=== PATIENT | female | born 1975 | race American Indian/Alaskan Native ===

== ENCOUNTER 2018-12-30 12:13 | Emergency (ER) | payer OTHER ==
--- NOTE | 2018-12-30 12:40 | Emergency Department Report ---
Blank Doc - Documentation Documentation: This is a 43-year-old female that presents with chest pain with body aches. D enies any SOB. Denies any radiation. This initial assessment diagnostic orders/clinical plan/treatment(s) is/are subject to change based on patient's health status, clinical progression and re-assessment by fellow clinical providers in the ED. Further treatment and workup at subsequent clinical providers discretion. Patient/guardians urged not to elope from ED s their condition may be serious if not clinically assessed and managed. Initial orders include: 1-patient sent to [facility] for further evaluation and treatment. 2- CXR 3- labs
[2018-12-30 13:39] LABS: Basophils % (Auto) 0.5 % (0.0-1.8); Eosinophils % (Auto) 0.4 % (0.0-4.3); Hematocrit 36.1 % (30.3-42.9); Hemoglobin 12.1 gm/dl (10.1-14.3); Lymphocytes # (Auto) 1.3 K/mm3 (1.2-5.4); Lymphocytes % (Auto) 26.5 % (13.4-35.0); Mean Corpuscular HGB Conc 33 % (30-34); Mean Corpuscular Volume 92 fl (79-97); Monocytes # (Auto) 0.3 K/mm3 (0.0-0.8); Monocytes % (Auto) 5.5 % (0.0-7.3); Platelet Count 245 K/mm3 (140-440); Red Blood Count 3.92 M/mm3 (3.65-5.03); Red Cell Distribution Width 14.6 % (13.2-15.2)
[2018-12-30 13:53] LABS: INR 1.01 (0.87-1.13); Partial Thromboplastin Time 25.3 Sec. (24.2-36.6)
[2018-12-30 13:56] LABS: Alanine Aminotransferase 15 units/L (7-56); Albumin 4.1 g/dL (3.9-5); BUN/Creatinine Ratio 10; Blood Urea Nitrogen 8 mg/dL (7-17); Calcium 8.6 mg/dL (8.4-10.2); Hemolysis Index 3
--- NOTE | 2018-12-30 15:01 | Emergency Department Report ---
ED Chest Pain HPI - General Chief Complaint: Chest Pain Stated Complaint: SHAKING/CHEST PAIN Time Seen by Provider: 12/30/18 12:39 Source: patient Mode of arrival: Ambulatory Limitations: No Limitations - History of Present Illness Initial Comments: 41-year-old female presents to ED with complaint of palpitations. Patient states she has not slept in 24 hours because she is not sleepy. States since this morning she has been experiencing intermittent episodes of "heart fluttering." Patient states the last episode was accompanied by a big "boom" of pain, that lasted for only 1 second and then went away. Patient states this is associated with diffuse body shaking. Patient denies fever, shortness of breath, nausea, vomiting, diaphoresis, leg pain or swelling. reports patient has been drinking energy drinks and taking [employer] supplements. Unsure if this may be congenital into patient's symptoms. The patient denies chest pain or palpitations at this time. PCP: Dr Reno HAM Complaint: chest pain, other (palpitations) -: This morning Onset: during rest Pain Location: substernal Pain Radiation: none Severity: moderate Severity scale (0 -10): 6 Consistency: now resolved Improves With: nothing Worsens With: nothing re: denies: nausea, vomting, diaphoresis, dyspnea - Related Data Home Medications Medication Instructions Recorded Confirmed Last Taken Insulin NPH Hum/Reg Insulin Hm 15 unit SQ QHS 09/05/13 09/05/13 09/04/13 [Humulin 70-30 Vial] Insulin NPH Hum/Reg Insulin Hm 20 unit SQ QAM 09/05/13 09/05/13 09/04/13 [Humulin 70-30 Vial] Lisinopril/Hydrochlorothiazide 1 tab PO QDAY 09/05/13 09/05/13 09/04/13 [Zestoretic 20-25 mg] metFORMIN [Glucophage] 1,000 mg PO BID 09/05/13 09/05/13 09/04/13 Previous Rx's Medication Instructions Recorded Last Taken Type Amoxicillin/K Clav Tab [Augmentin 1 tab PO Q12H #14 tablet 09/05/13 Unknown Rx 875MG] Cipro/Dexameth 0.3/0.1% [Ciprodex 4 drops OT BID #10 ml 09/05/13 Unknown Rx OTIC] Hydrocodone Bit/Acetaminophen 1 tab PO Q4-6H PRN #16 tablet 09/05/13 Unknown Rx [Lortab 10-500 mg] Allergies Allergy/AdvReac Type Severity Reaction Status Date / Time No Known Allergies Allergy Unverified 09/05/13 07:39 Heart Score - HEART Score History: Slightly suspicious EKG: Normal Age: < 45 Risk factors: 1-2 risk factors Troponin: < normal limit HEART Score: 1 ED Review of Systems ROS: Stated complaint: SHAKING/CHEST PAIN Other details as noted in HPI Comment: All other systems reviewed and negative Constitutional: denies: fever Respiratory: cough. denies: shortness of breath Cardiovascular: chest pain, palpitations Gastrointestinal: denies: abdominal pain, nausea, vomiting Musculoskeletal: other (denies leg pain or swelling) ED Past Medical Hx - Past Medical History Previous Medical History?: Yes Hx Hypertension: Yes Hx Diabetes: Yes - Surgical History Past Surgical History?: No - Social History Smoking Status: Never Smoker Substance Use Type: None - Medications Home Medications: Home Medications Medication Instructions Recorded Confirmed Last Taken Type Amoxicillin/K Clav Tab [Augmentin 1 tab PO Q12H #14 tablet 09/05/13 Unknown Rx 875MG] Cipro/Dexameth 0.3/0.1% [Ciprodex 4 drops OT BID #10 ml 09/05/13 Unknown Rx OTIC] Hydrocodone Bit/Acetaminophen 1 tab PO Q4-6H PRN #16 tablet 09/05/13 Unknown Rx [Lortab 10-500 mg] Insulin NPH Hum/Reg Insulin Hm 15 unit SQ QHS 09/05/13 09/05/13 09/04/13 History [Humulin 70-30 Vial] Insulin NPH Hum/Reg Insulin Hm 20 unit SQ QAM 09/05/13 09/05/13 09/04/13 History [Humulin 70-30 Vial] Lisinopril/Hydrochlorothiazide 1 tab PO QDAY 09/05/13 09/05/13 09/04/13 History [Zestoretic 20-25 mg] metFORMIN [Glucophage] 1,000 mg PO BID 09/05/13 09/05/13 09/04/13 History ED Physical Exam - General Limitations: No Limitations General appearance: alert, in no apparent distress - Head Head exam: Present: atraumatic, normocephalic - Eye Eye exam: Present: normal appearance - ENT ENT exam: Present: mucous membranes moist - Neck Neck exam: Present: normal inspection - Respiratory Respiratory exam: Present: normal lung sounds bilaterally. Absent: respiratory distress - Cardiovascular Cardiovascular Exam: Present: regular rate, normal rhythm - GI/Abdominal GI/Abdominal exam: Present: soft. Absent: distended, tenderness - Extremities Exam Extremities exam: Present: normal inspection. Absent: pedal edema, calf tenderness - Neurological Exam Neurological exam: Present: alert, oriented X3 - Psychiatric Psychiatric exam: Present: normal affect, normal mood - Skin Skin exam: Present: warm, dry, intact, normal color ED Course Vital Signs 12/30/18 12/30/18 12:40 15:14 Temperature 98.5 F Pulse Rate 85 74 Respiratory 20 18 Rate Blood Pressure 155/92 Blood Pressure 160/97 [Right] O2 Sat by Pulse 100 99 Oximetry ED Medical Decision Making - Lab Data Result diagrams: 12/30/18 13:19 12/30/18 13:19 - EKG Data -: EKG Interpreted by Ct EKG shows normal: sinus rhythm, axis, intervals, QRS complexes, ST-T waves Rate: normal - EKG Data Interpretation: no acute changes - Radiology Data Radiology results: report reviewed, image reviewed - Medical Decision Making - 43 yo F w/ palpitations, one episode of chest pain, currently asymptomatic - EKG normal, labs normal - sypmtoms could possibly be related to herbal supplements and energy drinks, ad vised pt to discontinue - outpatient f/u advised w/ PCP - return precautions given - Differential Diagnosis anxiety, insomnia, ACS Critical care attestation.: If time is entered above; I have spent that time in minutes in the direct care of this critically ill patient, excluding procedure time. ED Disposition Clinical Impression: Palpitations, Chest pain Disposition: DC-01 TO HOME OR SELFCARE Is pt being admited?: No Condition: Stable Instructions: Chest Pain (ED), Palpitations (ED) Referrals: THOMAS BUCHANAN MD [Primary Care Provider] - 3-5 Days Time of Disposition: 15:35
--- NOTE | 2018-12-30 15:02 | XRay Report ---
ROUTINE CHEST, TWO VIEWS: HISTORY: chest pain. The trachea, heart, mediastinal contour, lung peraza and bony thorax are unremarkable. IMPRESSION: Unremarkable chest x-ray.
[2018-12-30 15:14] VITALS: BP 160/97
== END 2018-12-30 16:02 | disposition home or self-care (01) ==
LOC: ED 12:13
DX: R00.2 Palpitations (principal); R07.89 Other chest pain; I10 Essential (primary) hypertension; E11.9 Type 2 diabetes mellitus without complications; Z79.899 Other long term (current) drug therapy
CPT/HCPCS: 36415; 71046; 80053; 82962; 84484; 84703; 85025; 85610; 85730; 93005; 93010